=== PATIENT | male | born 1945 | race Caucasian/White ===

== ENCOUNTER 2020-10-05 08:14 | Outpatient (REF) | payer MEDICARE, BC, SELFPAY ==
[2020-10-05 11:15] LABS: MANUAL DIFF FLAG NO
[2020-10-05 11:36] LABS: Basophils Percent Auto 0.8 % (0-2); Eosinophils Absolute Auto 0.2 X10*3/uL (0.0-0.4); Eosinophils Percent Auto 4.1 % (0-4); Hematocrit 42.8 % (42-52); Hemoglobin 14.6 g/dl (14.0-18.0); Imm Gran Abs Auto 0.03 X10*3/uL (0.00-0.03); Imm Gran Pct Auto 0.6 % (0.0-0.4); Lymphocytes Absolute Auto 1.3 X10*3/uL (1.2-4.9); Lymphocytes Percent Auto 25.4 % (20-40); Mean Corpuscular HGB Conc 34.1 g/dl (31.0-36.0); Mean Corpuscular Hemoglobin 32.7 pg (27.0-33.0); Mean Corpuscular Volume 95.7 fL (80-98); Mean Platelet Volume 9.8 fL (9.4-12.4); Monocytes Absolute Auto 0.5 X10*3/uL (0.1-1.2); Monocytes Percent Auto 10.2 % (2-11); Neutrophils Percent Auto 58.9 % (45-73); Platelet Count 184 X10*3/uL (160-400); Red Blood Count 4.47 X10*6/uL (4.60-5.80); White Blood Count 5.1 X10*3/uL (4.8-10.8)
[2020-10-05 12:26] LABS: Alanine Aminotransferase 23 U/L (0-40); Albumin Level 4.1 g/dL (3.5-5.0); Alkaline Phosphatase 39 U/L (39-117); Anion Gap 13 (12-20); Aspartate Amino Transferase 32 U/L (5-37); Bilirubin Total 1.1 mg/dL (0.0-1.0); Blood Urea Nitrogen 14 mg/dL (9-16); Calcium 8.9 mg/dL (8.4-10.2); Carbon Dioxide 29 mmol/L (22-29); Chloride 103 mmol/L (96-108); Cholesterol 146 mg/dL; Estimated Glomerular Filt Rate > 60; Glucose Fasting 99 mg/dL (60-99); HDL Cholesterol 48 mg/dL; LDL Cholesterol Calculated 81 mg/dl; Potassium 3.9 mmol/L (3.3-5.1); Sodium 141 mmol/L (135-145); Total Protein 6.5 g/dL (6.5-8.0); Triglycerides 88 mg/dL
[2020-10-05 12:50] LABS: Free T4 (Free Thyroxine) 1.25 ng/dL (0.71-1.85); Prostate Specific Antigen Scr 1.63 ng/mL (<0.05-4.0); Thyroid Stimulating Hormone 1.33 uIU/mL (0.32-4.0)
== END 2020-10-05 08:15 | disposition home or self-care (01) ==
LOC: HO.HMGCLDS 08:14
PROVIDERS: PCP Internal Medicine; Visit Provider Internal Medicine
DX: E78.5 Hyperlipidemia, unspecified (principal); I10 Essential (primary) hypertension; E03.9 Hypothyroidism, unspecified; Z12.5 Encounter for screening for malignant neoplasm of prostate
CPT/HCPCS: 36415; 80053; 80061; 84153; 84439; 84443; 85025

== ENCOUNTER 2021-10-03 08:05 | Outpatient (REF) | payer MEDICARE, BC, SELFPAY ==
[2021-10-03 11:16] LABS: MANUAL DIFF FLAG NO
[2021-10-03 11:21] LABS: Basophils Percent Auto 0.6 % (0-2); Eosinophils Absolute Auto 0.2 X10*3/uL (0.0-0.4); Eosinophils Percent Auto 4.3 % (0-4); Hemoglobin 14.6 g/dl (14.0-18.0); Imm Gran Abs Auto 0.01 X10*3/uL (0.00-0.03); Imm Gran Pct Auto 0.2 % (0.0-0.4); Lymphocytes Absolute Auto 1.3 X10*3/uL (1.2-4.9); Lymphocytes Percent Auto 26.7 % (20-40); Mean Corpuscular Hemoglobin 32.2 pg (27.0-33.0); Mean Corpuscular Volume 94.9 fL (80.0-98.0); Mean Platelet Volume 9.5 fL (9.4-12.4); Monocytes Absolute Auto 0.6 X10*3/uL (0.1-1.2); Monocytes Percent Auto 13.7 % (2-11); Neutrophils Absolute Auto 2.6 x10*3/uL (2.0-8.3); Neutrophils Percent Auto 54.5 % (45-73); Platelet Count 178 X10*3/uL (160-400); Red Blood Count 4.53 X10*6/uL (4.60-5.80); Red Cell Distribution Width 12.1 % (11.0-16.0); White Blood Count 4.7 X10*3/uL (4.8-10.8)
[2021-10-03 11:39] LABS: Alanine Aminotransferase 23 U/L (0-40); Alkaline Phosphatase 38 U/L (39-117); Anion Gap 10 (12-20); Aspartate Amino Transferase 31 U/L (5-37); Bilirubin Direct 0.3 mg/dL (0.0-0.5); Blood Urea Nitrogen 14 mg/dL (9-16); Carbon Dioxide 32 mmol/L (22-29); Chloride 103 mmol/L (96-108); Cholesterol 155 mg/dL; Estimated Glomerular Filt Rate > 60; Glucose Fasting 104 mg/dL (60-99); HDL Cholesterol 48 mg/dL; LDL Cholesterol Calculated 91 mg/dl; Potassium 4.5 mmol/L (3.3-5.1); Sodium 140 mmol/L (135-145); Total Protein 6.5 g/dL (6.5-8.0); Triglycerides 83 mg/dL
[2021-10-03 12:01] LABS: Free T4 (Free Thyroxine) 1.29 ng/dL (0.71-1.85); Prostate Specific Antigen Scr 1.82 ng/mL (<0.05-4.0); Thyroid Stimulating Hormone 1.19 uIU/mL (0.32-4.0)
== END 2021-10-03 08:06 | disposition home or self-care (01) ==
LOC: HO.HMGCLDS 08:05
PROVIDERS: Visit Provider Internal Medicine
DX: Z00.00 Encounter for general adult medical examination without abnormal findings (principal); Z12.5 Encounter for screening for malignant neoplasm of prostate; E03.9 Hypothyroidism, unspecified; R53.83 Other fatigue; E78.5 Hyperlipidemia, unspecified
CPT/HCPCS: 36415; 80051; 80061; 80076; 82565; 82947; 84153; 84439; 84443; 84520; 85025

== ENCOUNTER 2022-10-03 08:23 | Outpatient (REF) | payer MEDICARE, BC, SELFPAY ==
[2022-10-03 11:07] LABS: MANUAL DIFF FLAG NO
[2022-10-03 11:43] LABS: Basophils Percent Auto 0.6 % (0-2); Eosinophils Absolute Auto 0.1 X10*3/uL (0.0-0.4); Eosinophils Percent Auto 2.1 % (0-4); Hematocrit 40.7 % (42.0-52.0); Hemoglobin 14.4 g/dl (14.0-18.0); Imm Gran Abs Auto 0.02 X10*3/uL (0.00-0.03); Imm Gran Pct Auto 0.4 % (0.0-0.4); Lymphocytes Absolute Auto 1.3 X10*3/uL (1.2-4.9); Lymphocytes Percent Auto 25.3 % (20-40); Mean Corpuscular HGB Conc 35.4 g/dl (31.0-36.0); Mean Corpuscular Hemoglobin 33.6 pg (27.0-33.0); Mean Corpuscular Volume 95.1 fL (80.0-98.0); Mean Platelet Volume 9.3 fL (9.4-12.4); Monocytes Absolute Auto 0.5 X10*3/uL (0.1-1.2); Monocytes Percent Auto 8.9 % (2-11); Neutrophils Absolute Auto 3.3 x10*3/uL (2.0-8.3); Neutrophils Percent Auto 62.7 % (45-73); Platelet Count 179 X10*3/uL (160-400); Red Blood Count 4.28 X10*6/uL (4.60-5.80); White Blood Count 5.3 X10*3/uL (4.8-10.8)
[2022-10-03 12:12] LABS: Alanine Aminotransferase 19 U/L (0-40); Alkaline Phosphatase 35 U/L (39-117); Anion Gap 11 (12-20); Aspartate Amino Transferase 26 U/L (5-37); Bilirubin Direct 0.3 mg/dL (0.0-0.5); Bilirubin Total 1.2 mg/dL (0.0-1.0); Blood Urea Nitrogen 16 mg/dL (9-16); Carbon Dioxide 28 mmol/L (22-29); Chloride 107 mmol/L (96-108); Cholesterol 141 mg/dL; Estimated Glomerular Filt Rate > 60; Glucose Fasting 102 mg/dL (60-99); HDL Cholesterol 46 mg/dL; LDL Cholesterol Calculated 80 mg/dl; Potassium 4.4 mmol/L (3.3-5.1); Sodium 142 mmol/L (135-145); Triglycerides 77 mg/dL
[2022-10-03 12:26] LABS: Prostate Specific Antigen 2.26 ng/mL (<0.05-4.0); Thyroid Stimulating Hormone 1.01 uIU/mL (0.32-4.0)
== END 2022-10-03 08:24 | disposition home or self-care (01) ==
LOC: HO.HMGCLDS 08:23
PROVIDERS: PCP Internal Medicine; Visit Provider Internal Medicine
DX: E78.5 Hyperlipidemia, unspecified (principal); R53.83 Other fatigue; E03.9 Hypothyroidism, unspecified; Z12.5 Encounter for screening for malignant neoplasm of prostate
CPT/HCPCS: 36415; 80051; 80061; 80076; 82565; 82947; 84153; 84439; 84443; 84520; 85025

== ENCOUNTER 2023-10-01 08:14 | Outpatient (REF) | payer MEDICARE, BC, SELFPAY ==
[2023-10-01 10:32] LABS: MANUAL DIFF FLAG NO
[2023-10-01 10:39] LABS: Basophils Percent Auto 0.6 % (0-2); Eosinophils Absolute Auto 0.1 X10*3/uL (0.0-0.4); Eosinophils Percent Auto 1.6 % (0-4); Hematocrit 39.8 % (42.0-52.0); Hemoglobin 13.7 g/dl (14.0-18.0); Imm Gran Abs Auto 0.03 X10*3/uL (0.00-0.03); Imm Gran Pct Auto 0.5 % (0.0-0.4); Lymphocytes Absolute Auto 1.4 X10*3/uL (1.2-4.9); Lymphocytes Percent Auto 21.3 % (20-40); Mean Corpuscular HGB Conc 34.4 g/dl (31.0-36.0); Mean Corpuscular Hemoglobin 33.2 pg (27.0-33.0); Mean Corpuscular Volume 96.4 fL (80.0-98.0); Mean Platelet Volume 9.2 fL (9.4-12.4); Monocytes Absolute Auto 0.5 X10*3/uL (0.1-1.2); Monocytes Percent Auto 8.2 % (2-11); Neutrophils Absolute Auto 4.3 x10*3/uL (2.0-8.3); Neutrophils Percent Auto 67.8 % (45-73); Platelet Count 183 X10*3/uL (160-400); Red Blood Count 4.13 X10*6/uL (4.60-5.80); Red Cell Distribution Width 12.4 % (11.0-16.0); White Blood Count 6.3 X10*3/uL (4.8-10.8)
[2023-10-01 11:07] LABS: Alanine Aminotransferase 18 U/L (0-40); Albumin Level 3.8 g/dL (3.5-5.0); Alkaline Phosphatase 34 U/L (39-117); Anion Gap 10 (12-20); Aspartate Amino Transferase 26 U/L (5-37); Bilirubin Total 0.6 mg/dL (0.0-1.0); Blood Urea Nitrogen 15 mg/dL (9-16); Carbon Dioxide 28 mmol/L (22-29); Chloride 106 mmol/L (96-108); Cholesterol 136 mg/dL (<200); Estimated Glomerular Filt Rate > 60; Glucose Fasting 100 mg/dL (60-99); HDL Cholesterol 56 mg/dL (>40); LDL Cholesterol Calculated 69 mg/dL (<100); Potassium 4.2 mmol/L (3.3-5.1); Sodium 140 mmol/L (135-145); Total Protein 6.3 g/dL (6.5-8.0); Triglycerides 55 mg/dL (<150)
[2023-10-01 11:11] LABS: Free T4 (Free Thyroxine) 1.31 ng/dL (0.71-1.85); Thyroid Stimulating Hormone 1.47 uIU/mL (0.32-4.0)
[2023-10-01 11:15] LABS: Prostate Specific Antigen Scr 2.63 ng/mL (<0.05-4.0)
== END 2023-10-01 08:15 | disposition home or self-care (01) ==
LOC: HO.HMGCLDS 08:14
PROVIDERS: PCP Internal Medicine; Visit Provider Internal Medicine
DX: R53.83 Other fatigue (principal); E78.5 Hyperlipidemia, unspecified; Z12.5 Encounter for screening for malignant neoplasm of prostate
CPT/HCPCS: 36415; 80053; 80061; 84153; 84439; 84443; 85025

== ENCOUNTER 2024-09-29 08:40 | Outpatient (REF) | payer MEDICARE, BC, SELFPAY ==
--- OUTSIDE RECORDS SUMMARY | 2024-09-29 09:15 | XMS_ITS ---
Author Organization [facility] Address [address] [place] [address] Care Team Providers Care Functional Consultant Name Role Phone Reji Zuniga MD Primary Care Provider UnavailJaxon Woodward [phone] Allergies Allergen (clinical drug ingredient) Drug/Non Drug Allergy documented on EMR Reaction Allergy Type Onset Date Status Penicillin Unknown Drug Allergy Active mercaptopurine Mercaptopurine Unknown Drug Allergy Active REASON FOR VISIT Patient presents today for CROHN'S DISEASE Medications Medication SIG (Take, Route, Frequency, Duration) Notes Start Date End Date Status Balsalazide Disodium 750mg 3 tablets Ora lly Three times a day Active Zinc 1 1 capsule Orally Onc e a day Active Betamethasone Dipropionate 0.05% 1 application to affected area Externally Once a day Active Vitamin B6 200 MG 1 tablet Orally Once a day Active potassium 1 1 tablet Oral once a day Active Vitamin C 500mg Acti ve Flunisolide 25 MCG/ACT (0.025%) 2 drops in each nostril Nasally Twice a day Active Probiotic 6.66mg 1 CAPSULE Orally Onc e a day Active Aspir-81 81mg 1 tablet Orally ever y other day Active Fish Oil 1200mg 1 capsule Orally Onc e a day Active Simvastatin 40mg 1/4 tablet Orally On ce a day Active hydroCHLOROthiazide 25mg 1 tablet Orally Once a day Active Levothyroxine Sodium .0125mg 1 capsule O rally Once a day Active Sildenafil Citrate 100mg 1 tablet Orally Once a day Active Fluocinolone Acetonide Body 0.01% 1 application to affected area at bedtime Externally Once a day Active Vital Signs Temperature 98.2 degrees Fahrenheit 04/03/20 23 Blood pressure systolic 000 mm Hg 10/17/20 23 Blood pressure diastolic 00 mm Hg 023 Height 65.5 in 04/03/2023 Weight 180 lb 6 oz lbs 04/03/2023 BMI 29.56 kg/m2 04/03/2023 Encounters Encounter Location Date Provider Diagnosis [facility] [address] [place] [address] 04/03/2023 Jaxon Pike Crohns disease of large intestine without complication K50.10 Assessments Encounter Date Diagnosis (ICD Code) Assessment Notes Treatment Notes Treatment Clinical Notes Section Notes 04/03/2023 Crohns disease of large intestine without complication (ICD-10 - K50.10) Continue Balsalazide. Call me as needed. Overall, Mr. Bee appears quite well. He is not having any active symptoms of his Crohn's disease. As such, I advised him to continue his current regimen of the balsalazide at 2.25 g t.i.d.. I don't think he needs any diagnostic testing on my part at this time. I will plan to see him in one year for a followup visit but did advise him to certainly contact me prior to that if he has any problems or questions I can be of assistance with. Mr. Bee was comfortable with this plan. Thank you again for allowing me to participate in Mr. Bee's care. I shall continue to keep you advised of his progress. Plan Of Treatment Treatment Notes Assessment Notes Crohns disease of large inte [place] without complication Continue Balsalazide. Call me as needed. Next Appt Details Follow Up: 1 Year, Reason: Provider Name:Jaxon Pike , 04/07/2025 10:00:00 AM, [address], [address], [place], [address], Progress Notes * XIAO MISA ADOB:1945 (77 yo M)Acc No.[id number]:04/03/2023 Progress Notes Patient:?MISA BEE Provider:?Jaxon Pike MD :1945???Age:77 Y???Sex:Male Jose Antonio e:04/03/2023 Address:[address] [place] [address], [facility] Pcp:Reji Zuniga MD Subjective: * Chief Complaints: * ???Patient presents today fo r CROHN'S DISEASE * HPI: ???incontinence:? I saw Mr. Bee in followup today in regard to his underlying history of Crohn's disease. ?Since I last saw him in March 2022 he has been doing very well. He remains on the same regimen of balsalazide 2.25 g t.i.d.. He denies any particular issues with significant diarrhea, abdominal pain, abdominal distention, hematochezia, nor melena. He enjoys a good appetite, without any significant heartburn, dysphagia, early satiety, nausea, vomiting, jaundice, nor weight loss. ?He denies any hospitalizations or surgery since I saw him one year ago. ?Laboratories from September revealed a normal CBC, chemistries and renal function, and LFTs including an albumin of 4.0. * ROS:?General/Constitutional:?Change in appetite?denies.?Chills?denies.?Fatigue?denies.?Ophthalmologic:?Patient denies? Negative..?ENT:?Patient denies?Negative..?Respiratory:?Patient denies?No coughing/hemoptysis..?Cardiovascular:?Patient denies? No chest pain/orthopnea..?Gastrointestinal:?Comments?See HPI for details.?Genitourinary:?Patient denies? No dysuria/hematuria..?Musculoskeletal:?Patient denies? No specific arthralgias/myalgias..?Skin:?Patient denies?No rash/pruritus..?Neurologic:?Patient denies? No headaches/seizures..?Psychiatric:?Patient denies?Negative..? * Medical History:? * Surgical History:?Diverticul itis with sigmoid colectomy and temp. [place] [address] Navarrete 2 back surgeries Tonsillectomy Squamous cell removal left arm and mandaen 12/2020 * Hospitalization/Major Diagno stic Procedure:?Denies Past Hospitalization * Family History:?Father: dece ased, lung cancer.?Mother: , diagnosed with Heart disease.? No colorectal cancer nor IBD. * Social History:?Tobacco Use:?Tobacco Use/Smoking?Are you a: nonsmoker.?Drugs/Alcohol:?Alcohol Screen?Points: 1, Interpretation: Negative.?Miscellaneous:?Marital status: . 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 ???Nonsmoker; 1 beer daily and a glass of a wine with supper. * Medications:?TakingBalsalazi de Disodium 750mg Capsule 3 tablets Orally Three times a dayBetamethasone Dipropionate 0.05% Cream 1 application to affected area Externally Once a dayFluocinolone Acetonide Body 0.01% Oil 1 application to affected area at bedtime Externally Once a daySildenafil Citrate 100mg Tablet 1 tablet Orally Once a dayhydroCHLOROthiazide 25mg Tablet 1 tablet Orally Once a dayLevothyroxine Sodium .0125mg Capsule 1 capsule Orally Once a daySimvastatin 40mg Tablet 1/4 tablet Orally Once a dayFish Oil 1200mg Capsule 1 capsule Orally Once a dayProbiotic 6.66mg Capsule 1 CAPSULE Orally Once a dayAspir-81 81mg Tablet Delayed Release 1 tablet Orally every other dayVitamin C 500mg Flunisolide 25 MCG/ACT (0.025%) Solution 2 drops in each nostril Nasally Twice a dayVitamin B6 200 MG Tablet 1 tablet Orally Once a daypotassium 1 tablet 1 tablet Oral once a dayZinc 1 Capsule 1 capsule Orally Once a dayMedication List reviewed and reconciled with the patientTaking Balsalazide Disodium 750mg Capsule 3 tablets Orally Three times a dayTaking Betamethasone Dipropionate 0.05% Cream 1 application to affected area Externally Once a dayTaking Fluocinolone Acetonide Body 0.01% Oil 1 application to affected area at bedtime Externally Once a dayTaking Sildenafil Citrate 100mg Tablet 1 tablet Orally Once a dayTaking hydroCHLOROthiazide 25mg Tablet 1 tablet Orally Once a dayTaking Levothyroxine Sodium .0125mg Capsule 1 capsule Orally Once a dayTaking Simvastatin 40mg Tablet 1/4 tablet Orally Once a dayTaking Fish Oil 1200mg Capsule 1 capsule Orally Once a dayTaking Probiotic 6.66mg Capsule 1 CAPSULE Orally Once a dayTaking Aspir-81 81mg Tablet Delayed Release 1 tablet Orally every other dayTaking Vitamin C 500mg Taking Flunisolide 25 MCG/ACT (0.025%) Solution 2 drops in each nostril Nasally Twice a dayTaking Vitamin B6 200 MG Tablet 1 tablet Orally Once a dayTaking potassium 1 tablet 1 tablet Oral once a dayTaking Zinc 1 Capsule 1 capsule Orally Once a dayMedication List reviewed and reconciled with the patient * Allergies:?PenicillinMercapt opurineyes[Allergies Verified] Objective: * Vitals:?Wt: 180 lb 6 oz, Ht: 65.5 in, BMI:29.56 Index, BP: 000/00 mm Hg, Temp: 98.2. * Examination: ???General Examination: ?GENERAL APPEARANCE:?pleasant, well nourished, well developed, in no acute distress.?EYES:?sclera non-icteric.?ORAL CAVITY:?mucosa moist.?NECK/THYROID:?no cervical lymphadenopathy, neck supple.?SKIN:?nonjaundiced, no spider angiomata..?HEART:?S1, S2 normal.?LUNGS:?clear to auscultation bilaterally.?ABDOMEN:?normal bowel sounds, no guarding or rigidity, no hepatosplenomegaly, no masses palpable, soft, nontender, nondistended..?EXTREMITIES:?no edema.?NEUROLOGIC:?alert and oriented.? Assessment: * Assessment: 1.?Crohns disease of large i ntestine without complication - K50.10 (Primary)? Overall, Mr. Bee appears quite well. He is not having any active symptoms of his Crohn's disease. As such, I advised him to continue his current regimen of the balsalazide at 2.25 g t.i.d.. I don't think he needs any diagnostic testing on my part at this time. I will plan to see him in one year for a followup visit but did advise him to certainly contact me prior to that if he has any problems or questions I can be of assistance with. Mr. Bee was comfortable with this plan. Thank you again for allowing me to participate in Mr. Bee's care. I shall continue to keep you advised of his progress. Plan: * Treatment: * Procedure Codes:?1036F TOBAC CO NON-[id number] BP SCR NOT PRFRM REC REASON NOS * Preventive Medicine:? ??Counseling:?Care goal follow-up plan:?Above Normal BMI Follow-up?Giving encouragement to exercise,?BMI management provided?Yes.? * Follow Up:?1 Year * * Sign off status: Completed true * Provider:?Jaxon Pike MD Date:? 023 Generated for Seymour gonzales/Love/eTransmitting on:?09/29/2024 09:15 AM EDT History and Physical Notes * HPI (History of Present Illness) Category Sub-Category Detail Notes Category Not es incontinence I saw Mr. Bee in followup today in regard to his underlying history of Crohn's disease. Since I last saw him in March 2022 he has been doing very well. He remains on the same regimen of balsalazide 2.25 g t.i.d.. He denies any particular issues with significant diarrhea, abdominal pain, abdominal distention, hematochezia, nor melena. He enjoys a good appetite, without any significant heartburn, dysphagia, early satiety, nausea, vomiting, jaundice, nor weight loss. He denies any hospitalizations or surgery since I saw him one year ago. Laboratories from September revealed a normal CBC, chemistries and renal function, and LFTs including an albumin of 4.0. Examination Category Sub-Category Detail Notes Category Not es General Examination GENERAL APPEARANCE: pleasant , well nourished, well developed, in no acute distress EYES: sclera non-icteric NECK/THYROID: no cervical lymphade nopathy, neck supple HEART: S1, S2 normal LUNGS: clear to auscultatio n bilaterally ABDOMEN: normal bowel sounds, no guarding or rigidity, no hepatosplenomegaly, no masses palpable, soft, nontender, nondistended. NEUROLOGIC: alert and oriented SKIN: nonjaundiced, no spi andi angiomata. EXTREMITIES: no edema ORAL CAVITY: mucosa moist
--- OUTSIDE RECORDS SUMMARY | 2024-09-29 09:15 | XMS_ITS | Patient Health Record ---
Author Organization [facility] Address [address] [place] [address] Care Team Providers Care Dairy Grazer Name Role Phone Reji Zuniga MD Primary Care Provider Jaxon Hernández Unavailable [phone] Allergies Allergen (clinical drug ingredient) Drug/Non Drug Allergy documented on EMR Reaction Allergy Type Onset Date Status Penicillin Unknown Drug Allergy Active mercaptopurine Mercaptopurine Unknown Drug Allergy Active Reason For Referral No Information Medications Medication SIG (Take, Route, Frequency, Duration) Notes Start Date End Date Status Balsalazide Disodium 750mg 3 tablets Ora lly Three times a day Active Flunisolide 25 MCG/ACT (0.025%) 2 drops in each nostril Nasally Twice a day Active Betamethasone Dipropionate 0.05% 1 application to affected area Externally Once a day Active Vitamin B6 200 MG 1 tablet Orally Once a day Active Aspir-81 81mg 1 tablet Orally every other day Active Vitamin C 500mg Acti ve Fish Oil 1200mg 1 capsule Orally Once a day Active Probiotic 6.66mg 1 CAPSULE Orally Once a day Active Simvastatin 40mg 1/4 tablet Orally Once a day Not-Taking hydroCHLOROthiazide 25mg 1 tablet Orally Once a day Active Levothyroxine Sodium .0125mg 1 capsule O rally Once a day Active Fluocinolone Acetonide Body 0.01% 1 application to affected area at bedtime Externally Once a day Active potassium 1 1 tablet Oral once a day Active Sildenafil Citrate 100mg 1 tablet Orally Once a day Active Zinc 1 1 capsule Orally Once a day Active Immunizations Vaccine Route Administration Date Status Comme nts Flu vaccine no Preserv 3 and > Unknown 03/18/2014 Admin istered Influenza Unknown 03/18/2015 Administered Influenza Unknown 04/18/2017 Administered Influenza Unknown 04/18/2018 Administered Influenza Unknown 03/23/2020 Administered Influenza Unknown 03/16/2021 Administered Influenza Unknown 04/04/2022 Administered Influenza Unknown 03/28/2023 Administered Problems Problem Type SNOMED Code ICD Code Onset Dates Problem Status W/U Status Risk Notes Problem 595425958 Encounter for screening for malignant neoplasm of colon (Z12.11) Active confirmed Problem Screening for malignant neoplasm of rectum (601654588) Encounter for screening for malignant neoplasm of rectum (Z12.12) Active confirmed Problem 1532093 Crohns disease o f large intestine without complication (K50.10) Active confirmed Vital Signs Blood pressure diastolic 00 mm Hg 04/08/2024 Height 65.5 in 04/08/2024 Blood pressure systolic 00 mm Hg 04/08/2024 Weight 178 lbs 04/08/2024 BMI 29.17 kg/m2 04/08/2024 Encounters Encounter Location Date Provider Diagnosis [facility] [address] [place] [address] 04/08/2024 Jaxon Pike Crohns disease of large intestine without complication K50.10 Assessments Encounter Date Diagnosis (ICD Code) Assessment Notes Treatment Notes Treatment Clinical Notes Section Notes 04/08/2024 Crohns disease of large intestine without complication (ICD-10 - K50.10) Continue Balsalazide. Call me as needed. Overall, Kike appears quite well. He is not having any active symptoms of his Crohn's disease on his current regimen of the balsalazide at 2.25 g t.i.d.. I did advise him to continue this regimen on a long-term basis. I don't think he needs any diagnostic testing on my part at this time given his normal laboratories earlier this year and his excellent clinical appearance and clinical history. I will plan to see him in [...] advised of his progress. Plan Of Treatment Future Test Test Name Order Date COLONOSCOPY 04/04/2016 Next Appt Details Provider Name:Jaxon Pike , 04/07/2025 10:00:00 AM, [address], [address], [place], [address], Insurance Providers Payer Name Payer Address Payer Phone Subscriber Number Group Number Insured Name Patient Relationship to Insured Coverage Start Date Coverage End Date MEDICARE OF [place] [address] [place] [address] [id number] KIKE BEE Self - patient is the insured [employer] [address] [place] [address] [id number] KIKE BEE Self - patient is the insured Medical (General) History Medical History History ICD Code Crohn's colitis dx'd in 1991 -colonoscopies in 2012 and in 09/2016-neg. for adenomas, dysplasia, nor any active colitis. He had been on Remicade, but stopped that in 2008 without any flareups since. Kidney stones--01/2014-s/p cystoscopy and stent placements Hyperlipidemia Hypothyroidism Denies AK,DM,CVA,Lung disease,renal dise ase GERD--neg. EGD in 2002 COVID in 2021 Surgical History Surgery Date(Month/Year) Diverticulitis with sigmoid colectomy and temp. [place] [address] Navarrete 2 back surgeries Tonsillectomy Squamous cell removal left arm and templ e 12/2020
--- OUTSIDE RECORDS SUMMARY | 2024-09-29 09:15 | XMS_ITS ---
Author Organization [facility] Address [address] [place] [address] Care Team Providers Care Manager Of Application Development Name Role Phone Reji Zuniga MD Primary Care Provider UnavailJaxon Woodward [phone] Allergies Allergen (clinical drug ingredient) Drug/Non Drug Allergy documented on EMR Reaction Allergy Type Onset Date Status Penicillin Unknown Drug Allergy Active mercaptopurine Mercaptopurine Unknown Drug Allergy Active REASON FOR VISIT Patient presents today for crohn's Medications Medication SIG (Take, Route, Frequency, Duration) Notes Start Date End Date Status Aspir-81 81mg 1 tablet Orally every other day Active Fish Oil 1200mg 1 capsule Orally Once a day Active Probiotic 6.66mg 1 CAPSULE Orally Once a day Active Simvastatin 40mg 1/4 tablet Orally Once a day Not-Taking Levothyroxine Sodium .0125mg 1 capsule O rally Once a day Active Balsalazide Disodium 750mg 3 tablets Ora lly Three times a day Active Betamethasone Dipropionate 0.05% 1 application to affected area Externally Once a day Active hydroCHLOROthiazide 25mg 1 tablet Orally Once a day Active Fluocinolone Acetonide Body 0.01% 1 application to affected area at bedtime Externally Once a day Active Sildenafil Citrate 100mg 1 tablet Orally Once a day Active Flunisolide 25 MCG/ACT (0.025%) 2 drops in each nostril Nasally Twice a day Active Vitamin B6 200 MG 1 tablet Orally Once a day Active Vitamin C 500mg Acti ve potassium 1 1 tablet Oral once a day Active Zinc 1 1 capsule Orally Once a day Active Vital Signs Blood pressure systolic 00 mm Hg 04/08/20 24 Blood pressure diastolic 00 mm Hg 024 Height 65.5 in 04/08/2024 Weight 178 lbs 04/08/2024 BMI 29.17 kg/m2 04/08/2024 Encounters Encounter Location Date Provider Diagnosis [facility] [address] [place] [address] 04/08/2024 Jaxon Pike Crohns disease of large [...] Name:Jaxon Pike , 04/07/2025 10:00:00 AM, [address], [address], [place], [address], Progress Notes * KIKE BEE ADOB:1945 (78 yo M)Acc No.[id number]:04/08/2024 Progress Notes Patient:?KIKE BEE Provider:?Jaxon Pike MD :1945???Age:78 Y???Sex:Male Jose Antonio e:04/08/2024 Address:[address] [place] [address], [id number] Pcp:Reji Zuniga MD Subjective: * Chief Complaints: * ???Patient presents today fo r crohn's * HPI: ???incontinence:? I saw Kike in followup today in regard to his underlying history of Crohn's disease. ?Since I last saw Kike in March of 2023 he reports that his Crohn's disease has been remaining very stable on his current regimen of the balsalazide at 2.25 g t.i.d.. He reports that his bowel movements have been regular and without any significant diarrhea nor any hematochezia. He enjoys a good appetite and denies any significant heartburn, dysphagia, early satiety, nausea, vomiting, abdominal pain, signs of jaundice, nor any unintentional weight loss. ?Laboratories in September revealed a hemoglobin of 13.7 with a normal MCV, normal chemistries and renal function, and normal LFTs. * ROS:?General/Constitutional:?Change in appetite?denies.?Chills?denies.?Fatigue?denies.?Ophthalmologic:?Patient denies? Negative..?ENT:?Patient denies?Negative..?Respiratory:?Patient denies?No coughing/hemoptysis..?Cardiovascular:?Patient denies? No chest pain/orthopnea..?Gastrointestinal:?Comments?See HPI for details.?Genitourinary:?Patient denies? No dysuria/hematuria..?Musculoskeletal:?Patient denies? No specific arthralgias/myalgias..?Skin:?Patient denies?No rash/pruritus..?Neurologic:?Patient denies? No headaches/seizures..?Psychiatric:?Patient denies?Negative..? * Medical History:? * Surgical History:?Diverticul itis with sigmoid colectomy and temp. [place] [address] Navarrete 2 back surgeries Tonsillectomy Squamous cell removal left arm and congregational 12/2020 * Hospitalization/Major Diagno stic Procedure:?No Hospitalization History. * Family History:?Father: dece ased, lung cancer.?Mother: , diagnosed with Heart disease.? No colorectal cancer nor IBD. * Social History:?Tobacco Use:?Tobacco Use/Smoking?Are you a: nonsmoker.?Drugs/Alcohol:?Alcohol Screen?Points: 1, Interpretation: Negative.?Miscellaneous:?Marital status: . 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 ???Nonsmoker; 1 beer daily and a glass [...] .0125mg Capsule 1 capsule Orally Once a dayFish Oil 1200mg Capsule [...] 1 Capsule 1 capsule Orally Once a dayTaking Balsalazide Disodium 750mg Capsule 3 tablets Orally [...] Capsule 1 capsule Orally Once a dayTaking Fish Oil 1200mg [...] 1 Capsule 1 capsule Orally Once a dayNot-Taking/PRNSimvastatin 40mg Tablet 1/4 tablet Orally Once a dayMedication List reviewed and reconciled with the patientNot-Taking/PRN Simvastatin 40mg Tablet 1/4 tablet Orally Once a dayMedication List reviewed and reconciled with the patient * Allergies:?PenicillinMercapt opurineyes[Allergies Verified] Objective: * Vitals:?Wt: 178 lbs, Ht: 65. 5 in, BMI:29.17 Index, BP: 00/00 mm Hg. * Examination: ???General Examination: ?GENERAL APPEARANCE:?pleasant, well nourished, well developed, in no acute distress.?EYES:?sclera non-icteric.?ORAL CAVITY:?mucosa moist.?NECK/THYROID:?no cervical lymphadenopathy, neck supple.?SKIN:?nonjaundiced, no spider angiomata..?HEART:?S1, S2 normal.?LUNGS:?clear to auscultation bilaterally.?ABDOMEN:?normal bowel sounds, no guarding or rigidity, no hepatosplenomegaly, no masses palpable, soft, nontender, nondistended..?EXTREMITIES:?no edema.?NEUROLOGIC:?alert and oriented.? Assessment: * Assessment: 1.?Crohns disease of large i ntestine without complication - K50.10 (Primary)? Overall, Kike appears quite well. He is [...] * Treatment: * Procedure Codes:?1036F TOBAC CO NON-STWZA1838 BP SCR NOT PRFRM REC REASON NOS * Preventive Medicine:? ??Counseling:?Care goal follow-up plan:?Above Normal BMI Follow-up?Giving encouragement to exercise,?BMI management provided?Yes.? ??Screenings:?Fall Risk Screening?Fall Risk Assessment:?No falls in the past year,?Screening:?No falls in the past year,?Assessment:?Not performed, no reason specified,?Plan of Care:?Not documented, no reason specified.? * Follow Up:?1 Year * * Sign off status: Completed true * Provider:?Jaxon Pike MD Date:? 024 Generated for Seymour gonzales/Love/eTransmitting on:?09/29/2024 09:14 AM EDT History and Physical Notes * HPI (History of Present Illness) Category Sub-Category Detail Notes Category Not es incontinence I saw Kike in followup today in regard to his underlying history of Crohn's disease. Since I last saw Kike in March of 2023 he reports that his Crohn's disease has been remaining very stable on his current regimen of the balsalazide at 2.25 g t.i.d.. He reports that his bowel movements have been regular and without any significant diarrhea nor any hematochezia. He enjoys a good appetite and denies any significant heartburn, dysphagia, early satiety, nausea, vomiting, abdominal pain, signs of jaundice, nor any unintentional weight loss. Laboratories in September revealed a hemoglobin of 13.7 with a normal MCV, normal chemistries and renal function, and normal LFTs. Examination Category Sub-Category Detail Notes Category Not [...]
[2024-09-29 10:50] LABS: MANUAL DIFF FLAG NO
[2024-09-29 10:53] LABS: Basophils Percent Auto 0.4 % (0-2); Eosinophils Absolute Auto 0.1 X10*3/uL (0.0-0.4); Hemoglobin 14.2 g/dl (14.0-18.0); Imm Gran Abs Auto 0.02 X10*3/uL (0.00-0.03); Imm Gran Pct Auto 0.3 % (0.0-0.4); Lymphocytes Absolute Auto 1.4 X10*3/uL (1.2-4.9); Lymphocytes Percent Auto 19.7 % (20-40); Mean Corpuscular HGB Conc 34.6 g/dl (31.0-36.0); Mean Corpuscular Hemoglobin 33.3 pg (27.0-33.0); Mean Platelet Volume 9.3 fL (9.4-12.4); Monocytes Absolute Auto 0.7 X10*3/uL (0.1-1.2); Monocytes Percent Auto 9.4 % (2-11); Neutrophils Absolute Auto 4.8 x10*3/uL (2.0-8.3); Neutrophils Percent Auto 68.2 % (45-73); Platelet Count 174 X10*3/uL (160-400); Red Blood Count 4.27 X10*6/uL (4.60-5.80); Red Cell Distribution Width 12.3 % (11.0-16.0); White Blood Count 7.1 X10*3/uL (4.8-10.8)
[2024-09-29 11:17] LABS: Alanine Aminotransferase 22 U/L (0-40); Albumin Level 3.9 g/dL (3.5-5.0); Alkaline Phosphatase 35 U/L (39-117); Anion Gap 9 (12-20); Aspartate Amino Transferase 31 U/L (5-37); Bilirubin Total 0.8 mg/dL (0.0-1.0); Blood Urea Nitrogen 15 mg/dL (9-16); Calcium 8.9 mg/dL (8.4-10.2); Carbon Dioxide 28 mmol/L (22-29); Chloride 108 mmol/L (96-108); Cholesterol 123 mg/dL (<200); Estimated Glomerular Filt Rate > 60; Glucose Fasting 98 mg/dL (60-99); HDL Cholesterol 53 mg/dL (>40); LDL Cholesterol Calculated 57 mg/dL (<100); Potassium 4.2 mmol/L (3.3-5.1); Sodium 141 mmol/L (135-145); Total Protein 6.2 g/dL (6.5-8.0); Triglycerides 66 mg/dL (<150)
[2024-09-30 12:28] LABS: Thyroid Stimulating Hormone 0.83 uIU/mL (0.32-4.0)
[2024-09-30 12:32] LABS: Free T4 (Free Thyroxine) 1.49 ng/dL (0.71-1.85); Prostate Specific Antigen 2.87 ng/mL (<0.05-4.0)
== END 2024-09-29 08:41 | disposition home or self-care (01) ==
LOC: HO.HMGCLDS 08:40
PROVIDERS: PCP Internal Medicine; Visit Provider Internal Medicine
DX: Z12.5 Encounter for screening for malignant neoplasm of prostate (principal); E03.9 Hypothyroidism, unspecified; R53.83 Other fatigue; E78.5 Hyperlipidemia, unspecified
CPT/HCPCS: 36415; 80053; 80061; 84153; 84439; 84443; 85025